=== PATIENT | male | born 1970 | race African-American/Black ===

== ENCOUNTER 2021-06-17 19:16 | Emergency (ER) | payer BC, SELFPAY ==
[2021-06-17 19:49] VITALS: BP 162/97; PULSE 71; RESP 16; TEMP 36.4; O2SAT 99; BMI 22.2
--- NOTE | 2021-06-17 20:17 | CTR_ITS ---
PROCEDURE INFORMATION: Exam: CT Head Without Contrast Exam date and time: 06/17/2021 8:17 PM Age: 50 years old Clinical indication: Injury or trauma; Blunt trauma (contusions or hematomas); Patient HX: Fall hitting head TECHNIQUE: Imaging protocol: Computed tomography of the head without contrast. Radiation optimization: All CT scans at this facility use at least one of these dose optimization techniques: automated exposure control; mA and/or kV adjustment per patient size (includes targeted exams where dose is matched to clinical indication); or iterative reconstruction. COMPARISON: No relevant prior studies available. RADIATION DOSE METRICS: Total DLP (mGy-cm): 849.25 FINDINGS: Brain: Normal. No hemorrhage. Unremarkable white matter. No mass effect. Cerebral ventricles: No ventriculomegaly. Paranasal sinuses: Visualized sinuses are unremarkable. No fluid levels. Mastoid air cells: Visualized mastoid air cells are well aerated. Bones/joints: Unremarkable. No acute fracture. Soft tissues: Left frontal scalp soft tissue swelling. CT/CT head wo con* [id number] IMPRESSION: Negative for intracranial hemorrhage or mass effect
--- NOTE | 2021-06-17 20:17 | CTR_ITS ---
PROCEDURE INFORMATION: Exam: CT Cervical Spine Without Contrast Exam date and time: 06/17/2021 8:17 PM Age: 50 years old Clinical indication: Injury or trauma; Blunt trauma; Patient HX: Fall down stairs hitting head TECHNIQUE: Imaging protocol: Computed tomography images of the cervical spine without contrast. Radiation optimization: All CT scans at this facility use at least one of these dose optimization techniques: automated exposure control; mA and/or kV adjustment per patient size (includes targeted exams where dose is matched to clinical indication); or iterative reconstruction. COMPARISON: CT head wo con* [id number] 06/17/2021 8:25 PM RADIATION DOSE METRICS: Total DLP (mGy-cm): 427.47 FINDINGS: Vertebrae: Multilevel degenerative disc space disease throughout the cervical spine. C2-C3: No significant disc protrusion. No severe spinal canal stenosis. No significant neural foraminal narrowing. C3-C4: No significant disc protrusion. No severe spinal canal stenosis. No significant neural foraminal narrowing. C4-C5: No significant disc protrusion. No severe spinal canal stenosis. No significant neural foraminal narrowing. C5-C6: No significant disc protrusion. No severe spinal canal stenosis. No significant neural foraminal narrowing. C6-C7: No significant disc protrusion. No severe spinal canal stenosis. No significant neural foraminal narrowing. C7-T1: No significant disc protrusion. No severe spinal canal stenosis. No significant neural foraminal narrowing. Soft tissues: Unremarkable. Mastoid air cells: Left mastoid air cell minimal opacification may reflect a chronic inflammatory process. Lungs: Lung apices are normal. CT/CT cervical spin wo con* [id number] IMPRESSION: 1. Negative for fracture or dislocation. 2. Left mastoid air cell minimal opacification may reflect a chronic inflammatory process. 3. Multilevel degenerative disc space disease throughout the cervical spine.
--- NOTE | 2021-06-17 20:31 | W.ED.HEATRA ---
HPI - Head Injury General: Chief complaint: Head Injury Stated complaint: Injury Fell Head Time Seen by Provider: 06/17/21 19:59 Source: patient Mode of arrival: ambulatory Limitations: no limitations History of Present Illness: HPI Narrative: 50-year-old male states that he fell down stairs just prior for arrival. He did hit his head is a very small laceration to the left parietal region. Patient here will answer hardly any questions he states that he even want to come he was made to come regional he states that he just wants some sutures he will answer. Any loss of consciousness states he does have a headache denies pain elsewhere hard to get much history due to being noncompliant he is able to tell me the year and is coherent does not have appear to be altered at all Associated symptoms: Deny nausea, neck pain or vomiting Review of Systems Const: Denies: fever(s), chills, body aches or change in appetite Eyes: Denies: blurry vision or eye discomfort ENMT: Denies: throat pain or dental pain Card: Denies: chest pain Resp: Denies: dyspnea GI: Denies: abdominal pain, nausea, vomiting or diarrhea : Denies: dysuria Musc: Denies: neck pain or back pain Skin/Breast: Denies: rash Neuro: Reports: headache(s) Psych: Denies: depression Jefferson/Lymph: Denies: easy bruising All/Imm: Denies: urticaria Physical Exam Const: COMMON NORMALS: no acute distress, patient oriented x3 and healthy appearing HENMT: COMMON NORMALS: normocephalic and atraumatic HEAD & SCALP: normocephalic and atraumatic Eye: COMMON NORMALS: Equal, round and reactive pupils present and EOMs intact bilaterally PUPIL: Yes Equal, round and reactive pupils present Neck/C-Spine: COMMON NORMALS: full ROM and supple Chest: COMMONS NORMALS: normal inspection of the chest and normal palpation of entire chest wall Resp: COMMON NORMALS: normal respiratory effort, No retractions, No use of accessory muscles and clear to auscultation bilaterally AUSCULTATION: clear to auscultation bilaterally Cardio: COMMON NORMALS: regular rate, regular rhythm and No murmurs present (Cardio) RATE: regular rate RHYTHM: regular rhythm GI: COMMON NORMALS: Normal to inspection, nondistended, normoactive bowel sounds present, Soft to palpation, non-tender and no masses PALPATION: Yes Soft to palpation Extremity: COMMON NORMALS: normal to inspection and full ROM Neuro: COMMON NORMALS: patient oriented x3, moves all extremities and no focal motor deficits Psych: COMMON NORMALS: mental status grossly normal OTHER: Patient is being extremely uncooperative he argued with me that he does not need any imaging at first. He is refusing to stay in his room. He is able answer all my questions appropriately has no altered mental status able to tell me the year but refused to answer very many questions and was very argumentative Skin: COMMON NORMALS: no rashes or lesions noted and no wounds GENERAL SKIN EXAM: no rashes or lesions noted Course Vital Signs: Vital signs: Vital Signs Temperature 97.5 F L 06/17/21 19:49 Pulse Rate 71 06/17/21 19:49 Respiratory Rate 16 06/17/21 19:49 Blood Pressure 162/97 06/17/21 19:49 Pulse Oximetry 99 06/17/21 19:49 Discharge Plan Discharge Patient Disposition: Home Clinical Impression: Head injury, Laceration of head Condition: Stable Discharge Orders: Discharge ED (Routine); Ordered 06/17/21 Ordered By: Gail Yip Discharge Diet: Advance as tolerated Discharge Activity: Resume usual activity Patient Instructions: Laceration (ED), Opioid Safety Activity Restrictions/Additional Instructions: return in 7 days for staple removal Coding Level of Care Code ED [employer] Manager for [facility] Exam Comprehensive
--- NOTE | 2021-06-17 20:50 | XRR_ITS ---
PROCEDURE INFORMATION: Exam: XR Left Hand Exam date and time: 06/17/2021 8:50 PM Age: 50 years old Clinical indication: Pain; Hand; Left; Additional info: Injury TECHNIQUE: Imaging protocol: XR Left hand. Views: 3 or more views. COMPARISON: No relevant prior studies available. FINDINGS: Bones/joints: Normal. Soft tissues: Normal. XR/XR hand LT min 3V* [id number] IMPRESSION: No acute findings.
== END 2021-06-17 21:17 | disposition home or self-care (01) ==
PROVIDERS: Emergency Provider Emergency Medicine
DX: S01.01XA Laceration without foreign body of scalp, initial encounter (principal); S09.90XA Unspecified injury of head, initial encounter; W10.8XXA Fall (on) (from) other stairs and steps, initial encounter
CPT/HCPCS: 12001; 70450; 72125; 73130; 99283